=== PATIENT | female | born 2000 | race African-American/Black ===

== ENCOUNTER 2021-06-22 23:27 | Inpatient (IN) | payer BC ==
[2021-06-23 01:23] LABS: HEMATOCRIT 40.9 % (32.4-45.2); HEMOGLOBIN 13.8 GM/dL (10.7-15.3); MCHC 33.7 g/dl (32.0-36.0); MEAN CELL VOLUME 94.9 fl (80-96); MEAN PLT VOLUME 7.9 fl (7.5-11.1); PLATELET COUNT 239 10^3/uL (134-434); RBC 4.31 M/mm3 (3.60-5.2); RDW 15.2 % (11.6-15.6); WHITE BLOOD COUNT 8.8 K/mm3 (4.0-10.0)
[2021-06-23] MEDS ORDERED: OXYTOCIN 20 UNITS in 0.9% NS 20 UNIT/1,000 ML INFUS.BAG IV ONE (01:25)
[2021-06-23] MEDS ORDERED: LIDOCAINE HCL 1% PRESERVATIVE FREE - 30ML VIAL ONE (01:25)
[2021-06-23 01:26] LABS: INR 0.94 (0.83-1.09); PROTHROMBIN TIME (PATIENT) 11.6 SEC (9.7-13.0)
[2021-06-23 01:29] LABS: ACTIVATED PTT 29.4 SECONDS (25.2-36.5)
[2021-06-23 01:34] LABS: CALCIUM 8.4 mg/dL (8.5-10.1)
[2021-06-23 01:36] LABS: BLOOD UREA NITROGEN 5.6 mg/dL (7-18)
[2021-06-23 01:38] LABS: CREATININE 0.7 mg/dL (0.55-1.3)
[2021-06-23 01:53] VITALS: BMI 25.7
[2021-06-23] MEDS ORDERED: PCA PUMP NR ONE (02:13)
[2021-06-23] MEDS ORDERED: FENTANYL/BUPIVACAINE/NS/PF - PCEA - 50 ML DISP.SYRIN EP ONE (02:13)
[2021-06-23] MEDS ORDERED: ELECTROLYTE-148 SOLN 1,000 ML IV SCH (02:20)
[2021-06-23] MEDS ORDERED: NALOXONE HCL 0.4 MG/ML VIAL IVPUSH PRN (02:44)
[2021-06-23] MEDS ORDERED: FENTANYL/BUPIVACAINE/NS/PF - PCEA - 50 ML DISP.SYRIN EP SCH ×2 (02:45→03:24)
[2021-06-23 04:32] LABS: ANISOCYTOSIS 0; HELMET CELLS 0; HOWELL-JOLLY BODIES 0; MACROCYTOSIS 0; OVALOCYTE 0; PLATELET ESTIMATE NORMAL; ROULEAU 0; SICKELED CELLS 0; TARGET CELLS 0; TEAR DROP CELLS 0; TOXIC GRANULATION 0
[2021-06-23] MEDS ORDERED: BISACODYL 10 MG SUPP.RECT RC PRN (04:44)
[2021-06-23] MEDS ORDERED: BENZOCAINE 28 GM HEMORRHOIDAL OINTMENT TP PRN (04:44)
[2021-06-23] MEDS ORDERED: ACETAMINOPHEN 325 MG TABLET (FP) PO PRN (04:44)
[2021-06-23] MEDS ORDERED: WITCH HAZEL 50% (TUCKS) 40 PAD/JAR PAD TP PRN (04:44)
[2021-06-23] MEDS ORDERED: METHYLERGONOVINE MALEATE 0.2 MG/1 ML AMP IM PRN (04:44)
[2021-06-23] MEDS ORDERED: oxyCODONE HCL 5 MG TABLET PO PRN (04:44)
[2021-06-23] MEDS ORDERED: BENZOCAINE 20% 57 GM BOTTLE TP PRN (04:44)
[2021-06-23] MEDS ORDERED: OXYTOCIN 20 UNITS in 0.9% NS 20 UNIT/1,000 ML INFUS.BAG IV SCH (04:45)
[2021-06-23] MEDS ORDERED: propRANOLol HCL 10 MG TABLET PO ONE (05:30)
[2021-06-23] MEDS ORDERED: IBUPROFEN 600 MG TABLET (FP) PO ONE (07:25)
[2021-06-23] MEDS: IBUPROFEN 600 MG TABLET (FP) PO PRN ×2 (07:27→17:54)
[2021-06-23 07:58] LABS: COCAINE, UR NEGATIVE (NEGATIVE); METHADONE, UR NEGATIVE (NEGATIVE); OPIATES, URI NEGATIVE (NEGATIVE); PHENCYCLIDINE,URINE NEGATIVE (NEGATIVE); URINE AMPHETAMINES NEGATIVE (NEGATIVE); URINE BARBITURATES NEGATIVE (NEGATIVE); URINE BENZODIAZEPINES NEGATIVE (NEGATIVE)
[2021-06-23] MEDS: PRENATAL VITAMINS W/ FOLIC ACID TABLET (FP) PO SCH (10:02)
[2021-06-23 11:33] LABS: SYPHILIS W/ RPR CONF NON-REACTIVE (NONREACTIVE)
[2021-06-23 12:02] LABS: HIV INTERPRETATION NEGATIVE (NEGATIVE)
[2021-06-24] MEDS: IBUPROFEN 600 MG TABLET (FP) PO PRN ×2 (03:37→20:23)
[2021-06-24 09:21] LABS: BASO % 0.3 % (0-2.0); EOS % 0.6 % (0-4.5); HEMATOCRIT 36.9 % (32.4-45.2); HEMOGLOBIN 12.5 GM/dL (10.7-15.3); LYMPH % 19.5 % (8-40); MCH 32.4 pg (25.7-33.7); MCHC 33.9 g/dl (32.0-36.0); MEAN CELL VOLUME 95.6 fl (80-96); MEAN PLT VOLUME 7.9 fl (7.5-11.1); MONO % 8.9 % (3.8-10.2); NEUT % 70.7 % (42.8-82.8); PLATELET COUNT 221 10^3/uL (134-434); RBC 3.86 M/mm3 (3.60-5.2); RDW 14.8 % (11.6-15.6)
[2021-06-24] MEDS: PRENATAL VITAMINS W/ FOLIC ACID TABLET (FP) PO SCH (10:02)
[2021-06-24] MEDS ORDERED: SENNOSIDES/DOCUSATE COMBO (SENNA PLUS) TABLET (UD) PO PRN (22:00)
[2021-06-25] MEDS: PRENATAL VITAMINS W/ FOLIC ACID TABLET (FP) PO SCH (09:17)
[2021-06-25 10:48] VITALS: BP 114/74; PULSE 94; TEMP 98
== END 2021-06-25 12:50 | disposition home or self-care (01) | DRG 807 ==
LOC: JDEL 23:27 → JLDR 06-23 00:15 → J3W 06-23 07:50
PROVIDERS: ADMIT Obstetrics & Gynecology; ATTEND Obstetrics & Gynecology
PROC: 10E0XZZ Delivery of Products of Conception, External Approach (ICD-10-PCS; principal; 2021-06-23)
DX: O70.0 First degree perineal laceration during delivery (principal); Z37.0 Single live birth; O69.81X0 Labor and delivery complicated by cord around neck, without compression, not applicable or unspecified; Z3A.38 38 weeks gestation of pregnancy
CPT/HCPCS: 36415; 59409; 80048; 80307; 85025; 85610; 85730; 86780; 86850; 86900; 86901; 87389; C9803; U0003; U0005